=== PATIENT | female | born 1960 | race Caucasian/White ===

== ENCOUNTER 2018-02-15 12:21 | Emergency (ER) | payer MEDICAID ==
[~2018-02-15] VITALS: Ht 175.3 cm; Wt 49.4 kg
[2018-02-15 12:25] VITALS: BP 134/82
--- NOTE | 2018-02-15 12:56 | NUR ---
PATIENT AMBULATED TO ER BED 3
--- NOTE | 2018-02-15 13:10 | NUR ---
PATIENT PRESENTS TO ED WITH C/O ABDOMINAL PAIN AND CONSTIPATION X4 DAYS . PATIENT STATES PAIN OF 8/10 AT THIS TIME; VSS; PATIENT POSITIONED FOR COMFORT; HOB ELEVATED; BEDRAILS UP X2; BED DOWN. ER MD MADE AWARE OF PT STATUS.
--- NOTE | 2018-02-15 13:26 | NUR ---
Patient being evaluated by physician at bedside.
[2018-02-15] MEDS ORDERED: MAGNESIUM CITRATE 300 ML BTL PO ONE (13:30)
[2018-02-15 14:58] VITALS: BP 134/82
--- NOTE | 2018-02-15 14:58 | NUR ---
Patient discharged with v/s stable. Written and verbal after care instructions given and explained. Patient alert, oriented and verbalized understanding of instructions. Ambulatory with steady gait. All questions addressed prior to discharge. ID band removed. Patient advised to follow up with PMD. Rx of HYDROCORTISONE, DULCOLAX, MIRALAX given. Patient educated on indication of medication including possible reaction and side effects. Opportunity to ask questions provided and answered.
== END 2018-02-15 14:58 | disposition home or self-care (01) ==
LOC: MED 12:21
DX: K59.00 Constipation, unspecified (principal); K64.4 Residual hemorrhoidal skin tags; M81.0 Age-related osteoporosis without current pathological fracture; Z90.89 Acquired absence of other organs; Z90.710 Acquired absence of both cervix and uterus
CPT/HCPCS: 74018; 81025; 99283

== ENCOUNTER 2018-03-07 16:04 | Inpatient (IN) | payer MEDICAID ==
[~2018-03-07] VITALS: Ht 175.3 cm; Wt 49.4 kg
[2018-03-07 16:19] VITALS: BP 125/80
--- NOTE | 2018-03-07 16:26 | NUR ---
PT AMBULATES TO BED 12
--- NOTE | 2018-03-07 16:30 | NUR ---
57/F BIB SELF C/O CHRONIC CONSTIPATION, HEMORRHOIDS, ABDOMINAL PAIN FOR 2 YRS; LAST BM 4 DAYS AGO.HX; CONSTIPATION. DENIES N/V/D; SKIN IS PINK/WARM/DRY; AAOX4 WITH EVEN AND STEADY GAIT; LUNGS CLEAR BL.PATIENT STATES PAIN OF 8/10 AT THIS TIME. PATIENT POSITIONED FOR COMFORT; HOB ELEVATED; BEDRAILS UP X2; BED DOWN. ER MD MADE AWARE OF PT STATUS.
--- NOTE | 2018-03-07 17:44 | NUR ---
Patient being evaluated by DR BIRMINGHAM at bedside.
[2018-03-07 18:13] LABS: BASOPHILS % (AUTO) 0.9 % (0.0-2.0); EOSINOPHILS # (AUTO) 0.1 K/uL (0-0.4); EOSINOPHILS % (AUTO) 3.3 % (0.0-4.0); HEMATOCRIT 41.3 % (36-48); HEMOGLOBIN 13.6 g/dL (12.0-16.0); LYMPHOCYTES # (AUTO) 1.3 K/uL (2.5-16.5); LYMPHOCYTES % (AUTO) 33.9 % (20.5-51.1); MEAN CORPUSCULAR HEMOGLOBIN 30 pg (27-31); MEAN CORPUSCULAR HGB CONC 33 g/dL (33-37); MEAN CORPUSCULAR VOLUME 89.9 fL (80-94); MONOCYTES # (AUTO) 0.5 K/uL (0.8-1.0); MONOCYTES % (AUTO) 12.4 % (1.7-9.3); NEUTROPHILS # (AUTO) 1.9 K/uL (1.8-7.7); NEUTROPHILS % (AUTO) 49.5 % (42.2-75.2); PLATELET COUNT (AUTO) 237 K/uL (140-450); RED BLOOD CELL COUNT(AUTO) 4.59 MIL/uL (4.20-5.40); RED CELL DISTRIBUTION WIDTH 13.8 % (11.6-13.7); WHITE BLOOD COUNT (AUTO) 3.9 K/uL (4.8-10.8)
[2018-03-07 18:23] LABS: APPEARANCE,URINE SL CLOUDY (CLEAR); BILIRUBIN,URINE NEGATIVE (NEGATIVE); BLOOD, URINE NEGATIVE (NEGATIVE); COLOR,URINE YELLOW (YELLOW); LEUKOCYTE ESTERASE ,URINE NEGATIVE (NEGATIVE); NITRITE, URINE POSITIVE (NEGATIVE); PH,URINE 5.5 (5.0-9.0); UGLUCOSE NEGATIVE (NEGATIVE)
[2018-03-07 18:24] LABS: ANION GAP 8.7 (8-16); CARBON DIOXIDE 35.9 mmol/L (21-32); CREATININE 0.9 mg/dL (0.6-1.3); POTASSIUM 3.6 mmol/L (3.5-5.1)
[2018-03-07 18:30] LABS: ALBUMIN 3.8 g/dL (3.4-5.0); TOTAL BILIRUBIN 0.2 mg/dL (0.0-1.0)
[2018-03-07 18:45] LABS: RBC,URINE 0-5 (RARE) /HPF (0-5); WBC,URINE 0-5 (RARE) /HPF (0-5)
[2018-03-07 18:46] LABS: CALCIUM OXALATE CRYSTALS,UR 1 /HPF (None Seen)
--- NOTE | 2018-03-07 19:03 | NUR ---
PT TAKEN TO CT VIA W/C ACCOMPANIED BY MANAGER TRUCK.
--- NOTE | 2018-03-07 19:09 | NUR ---
Pt report given to WILLIAM SALAS . Transfer of care at this time.
--- NOTE | 2018-03-07 19:15 | NUR ---
PT BACK FROM CT. PT AOX4, RR EVEN AND UNLABORED. PT DENIES HAVING BM. PROVIDED PT WITH SANDWICH PER PT REQUEST, DR BIRMINGHAM AWARE.
[2018-03-07 20:00] VITALS: BP 130/80
--- NOTE | 2018-03-07 21:00 | NUR ---
Patient appears to be resting comfortably in bed. Vital Signs within normal limits. Respirations even and unlabored.
[2018-03-07] MEDS ORDERED: ACETAMINOPHEN 325 MG TAB PO PRN (22:25)
[2018-03-07] MEDS ORDERED: ONDANSETRON 4 MG/2 ML VIAL IVP PRN (22:25)
[2018-03-07] MEDS ORDERED: HYDROcodone/APAP 7.5/325 MG 1 TAB PO PRN (22:25)
[2018-03-07] MEDS: LEVOFLOXACIN 250 MG/D5 PREMIX 50 ML IV SCH (22:30)
[2018-03-07] MEDS ORDERED: MAGNESIUM CITRATE 300 ML BTL PO ONE (22:30)
[2018-03-07] MEDS ORDERED: SODIUM PHOSPHATE 118 ML ENEM RC ONE (22:30)
[2018-03-07] MEDS ORDERED: CALC-751 PO (23:00)
[2018-03-07] MEDS ORDERED: MAGN1.7538 PO (23:00)
--- NOTE | 2018-03-07 23:00 | NUR ---
Patient appears to be resting comfortably in bed. Vital Signs within normal limits. Respirations even and unlabored.
[2018-03-07 23:04] LABS: BARBITURATE, URINE NEG. ng/ml (NEG <=200); BENZODIAZEPINE, URINE NEG. ng/mL (NEG <=200); CANNABINOID, URINE NEG. ng/mL (NEG <=50); COCAINE, URINE NEG. ng/mL (NEG <=300); OPIATE, URINE NEG. ng/mL (NEG <=2000); PHENCYCLIDINE SCREEN,URINE NEG. ng/mL (NEG <=25)
[2018-03-07 23:14] LABS: CHOL/HDL RATIO 2.6 (1-4.5); FREE T4 (FREE THYROXINE) 0.86 ng/dL (0.76-1.46); THYROID STIMULATING HORMONE 1.12 uIU/mL (0.34-3.74)
[2018-03-07 23:17] LABS: PROTHROMBIN TIME 10.2 secs (10.8-13.4)
--- NOTE | 2018-03-07 23:20 | NUR ---
Admitted from ER TO MED SURGICAL UNIT, with chief complaint of CONSTIPATION FOR 5 DAYS NOW, 57 y/o ,Female, Cooperative, AWAKE, A/OX4. RESPIRATION EVEN AND UNLABORED. IV SALINE LOCK AT THE LEFT FOREARM G20, PATENT AND INTACT. AMBULATORY TO BR. INDEPENDENT, HEAD TO TOE ASSESSMENT DONE WITH CHARGE NURSE JORGE SKIN INTACT. PLAN OF CARE FOR THE SHIFT DISCUSSED. VERBALIZED UNDERSTANDING. DENIES PAIN 0/10.oriented to call light, bed, phone,television, bathroom, smoking policy,visiting hours, procedures, ID bracelet on. Belongings list checked.
--- NOTE | 2018-03-07 23:23 | NUR ---
Patient will be admitted to care of [facility]. Admited to TELE. Will go to room 106B. Belongings list completed. Report to WILLIAM SALAZAR AT BEDSIDE.
[2018-03-08] VITALS: BP 132/86
--- NOTE | 2018-03-08 | NUR ---
Patient's Plan of Care was discussed and reviewed with RESEARCH PROFESSOR OF BIOSTATISTICS: APOLLO GOFF
[2018-03-08] MEDS: LEVOFLOXACIN 250 MG/D5 PREMIX 50 ML IV SCH (00:56)
--- NOTE | 2018-03-08 00:58 | NUR ---
CITROMA GIVEN TO PATIENT, STARTED DRINKING IT. REFUSED TO HAVE FLEET ENEMA AT THIS TIME BECAUSE OF THE IVPB DAWOOD, STATED IT WOULD BE HARD FOR HER TO GO TO BR IF ANTIBIOTIC IS INFUSING.
--- NOTE | 2018-03-08 02:00 | NUR ---
BILATERAL LEG SEQUENTIALS NOT APPLIED, PATIENT AMBULATING TO THE BR.
--- NOTE | 2018-03-08 02:35 | NUR ---
FLEET ENEMA GIVEN. INSTRUCTED TO TRY TO RETAIN THE FLUID AND CALL NURSE WHEN NEEDING HELP.
--- NOTE | 2018-03-08 03:00 | NUR ---
ENCOURAGED TO FINISH THE CITROMA.
--- NOTE | 2018-03-08 05:30 | NUR ---
HAD MEDIUM LOOSE BM. BACK TO BED AFTER DEFECATING.
--- NOTE | 2018-03-08 07:15 | NUR ---
CONDITION REMAIN STABLE. ENDORSED TO WILLIAM ERAZO FOR CONTINUITY OF CARE.
--- NOTE | 2018-03-08 07:20 | NUR ---
RECEIVED REPORT FROM SCRAP YARD WORKER NURSE. PT IS RESTING IN BED AAOX4, AMBULATORY, PT HAS IV ON HER LEFT FA, PATENT, INTACT, FLUSHING WELL, NO S/S OF RESPIRATORY DISTRESS OR DISCOMFORT NOTED, SKIN IS INTACT, DISCUSSED PLAN OF CARE WITH PT, PT VERBALIZED UNDERSTANDING, CALL LIGHT WITHIN REACH, WILL CONTINUE TO MONITOR.
[2018-03-08 07:21] LABS: BASOPHILS % (AUTO) 0.9 % (0.0-2.0); EOSINOPHILS # (AUTO) 0.1 K/uL (0-0.4); EOSINOPHILS % (AUTO) 3.1 % (0.0-4.0); HEMOGLOBIN 14.2 g/dL (12.0-16.0); LYMPHOCYTES # (AUTO) 1.4 K/uL (2.5-16.5); LYMPHOCYTES % (AUTO) 34.4 % (20.5-51.1); MEAN CORPUSCULAR HEMOGLOBIN 30 pg (27-31); MEAN CORPUSCULAR HGB CONC 34 g/dL (33-37); MEAN CORPUSCULAR VOLUME 88.7 fL (80-94); MONOCYTES # (AUTO) 0.4 K/uL (0.8-1.0); NEUTROPHILS % (AUTO) 50.6 % (42.2-75.2); PLATELET COUNT (AUTO) 226 K/uL (140-450); RED BLOOD CELL COUNT(AUTO) 4.73 MIL/uL (4.20-5.40); RED CELL DISTRIBUTION WIDTH 13.6 % (11.6-13.7)
[2018-03-08 07:27] LABS: ANION GAP 11.7 (8-16); CARBON DIOXIDE 30.9 mmol/L (21-32); CREATININE 0.8 mg/dL (0.6-1.3); POTASSIUM 3.6 mmol/L (3.5-5.1)
[2018-03-08 08:00] VITALS: BP 111/72
--- NOTE | 2018-03-08 08:20 | NUR ---
DUE MEDICATIONS GIVEN. PT TOLERATED WELL, CALL LIGHT WITHIN REACH.
[2018-03-08] MEDS ORDERED: DOCUSATE SODIUM 100 MG GELCAP PO SCH (09:00)
[2018-03-08] MEDS ORDERED: LACTOBACILLUS RHAMNOSUS GG 1 EACH CAP PO SCH (09:00)
--- NOTE | 2018-03-08 11:00 | NUR ---
PATIENT IS RESTING IN BED, PATIENT'S FAMILY IS AT BEDSIDE. CALL LIGHT IS WITHIN REACH.
--- NOTE | 2018-03-08 12:40 | NUR ---
CALLED ALENA AT [facility]. HE SAID REVIEW JUST GO TO [facility] FAXED INITIAL REVIEW TO [facility] [phone] PHONE [phone] NORI Pacheco391
--- NOTE | 2018-03-08 12:45 | NUR ---
PT IN THE SHOWER AT THIS TIME.
--- NOTE | 2018-03-08 13:00 | NUR ---
PT RETURNED BACK TO HER ROOM AFTER SHOWER. PT STABLE AT THIS TIME.
[2018-03-08 13:30] LABS: MAGNESIUM 2.3 mg/dL (1.8-2.4); PHOSPHORUS 5.3 mg/dL (2.5-4.9)
[2018-03-08 14:03] LABS: MAGNESIUM 2.3 mg/dL (1.8-2.4); PHOSPHORUS 5.3 mg/dL (2.5-4.9)
--- NOTE | 2018-03-08 14:45 | NUR ---
DISCHARGE INSTRUCTIONS GIVEN, IV REMOVED, CATHETER TIP INTACT, ID WRIST BAND REMOVED. PT STABLE UPON DISCHARGE.
--- NOTE | 2018-03-08 14:58 | NUR ---
PATIENT HAS BEEN SCREENED AND CATEGORIZED HIGH NUTRITION RISK. PATIENT WILL BE SEEN WITHIN 1-2 DAYS OF ADMISSION. 03/08/18 - 03/09/[address]
[2018-03-09] MEDS ORDERED: LEVOFLOXACIN 250 MG/D5 PREMIX 50 ML IV SCH (09:00)
--- NOTE | 2018-03-11 15:33 | NUR ---
CM NOTE DISCHARGE SUMMARY FAXED TO [facility] [place] / FAX# [phone]
== END 2018-03-08 14:57 | disposition home or self-care (01) | DRG 254 ==
LOC: MED 16:04 → MTU 22:27
PROVIDERS: ADMIT Family Medicine Sports Medicine; ATTEND Family Medicine Sports Medicine
DX: K59.00 Constipation, unspecified (principal); N39.0 Urinary tract infection, site not specified; F15.10 Other stimulant abuse, uncomplicated; K80.20 Calculus of gallbladder without cholecystitis without obstruction; R63.6 Underweight; M81.0 Age-related osteoporosis without current pathological fracture; F17.210 Nicotine dependence, cigarettes, uncomplicated; M85.80 Other specified disorders of bone density and structure, unspecified site; D72.819 Decreased white blood cell count, unspecified; K76.9 Liver disease, unspecified; Z68.1 Body mass index [BMI] 19.9 or less, adult; Z80.8 Family history of malignant neoplasm of other organs or systems; Z90.710 Acquired absence of both cervix and uterus; Z82.49 Family history of ischemic heart disease and other diseases of the circulatory system
CPT/HCPCS: 36415; 71045; 80048; 80053; 80305; 81001; 82150; 83036; 83690; 83735; 83880; 84100; 84439; 84443; 84484; 85025; 85610; 85730; 87081; 87086; 93005; 99285; J1956; J7030; J7060; Q9967

== ENCOUNTER 2018-07-20 12:12 | Emergency (ER) | payer MEDICAID ==
[~2018-07-20] VITALS: Ht 175.3 cm; Wt 52.2 kg
[~2018-07-20 12:12] MED LIST: CALC-751 PO; MAGN1.7538 PO
[2018-07-20 12:21] VITALS: BP 130/90
--- NOTE | 2018-07-20 12:26 | NUR ---
PT. CAME INTO THE ED DUE TO R ARMPIT PAIN THAT RADIATES TO HER BACK SINCE THIS MORNING. PT STATES " I GET THIS PAIN WHEN I START GETTING BRONCHITIS". DENIES ANY FEVERS, RR EVEN AND UNLABORED. SYMMETRICAL CHEST RISE NOTED. LS: CLEAR AND DIMINISHED ON R SIDE. PT STATES " I TOOK AN ANTIBIOTIC THAT MY DOCTOR GAVE ME A COUPLE WEEKS AGO AND 2 ASPIRINS OF 250MG". PT HAS 9/10 SHARP PAIN THAT RADIATES FROM UNDER R ARMPIT TO R BACK SINCE THIS MORNING". DENIES N/V/D. ER NOTIFIED. SAFETY PRECAUTIONS IMPLEMENTED. WILL CONTINUE TO MONITOR.
[2018-07-20] MEDS ORDERED: AZITHROMYCIN 250 MG TAB PO ONE (12:55)
[2018-07-20] MEDS ORDERED: IPRATROPIUM 0.02% 0.5 MG/2.5 ML NEBU INH ONE (12:55)
[2018-07-20] MEDS ORDERED: ALBUTEROL 0.083% 2.5 MG/3 ML NEBU INH ONE (12:55)
--- NOTE | 2018-07-20 13:07 | NUR ---
RT AT BEDSIDE AT THIS TIME, RR EVEN AND UNLABORED. VSS. WILL CONTINUE TO MONITOR
--- NOTE | 2018-07-20 13:11 | NUR ---
ADMITTING DX: OTHER HX: BRONCHITIS AWAKE AND ALERT RESPONSIVE C/O SOB SITTING UP ON [place] EDUCATION PROVIDED TO PATIENT WITH ACLKNOWLEDGEMENT ON [facility] THERAP[facility] AND RESPIRATORY DRUGS [facility]ER[facility] GIVEN ORDERED ENCOURAGED PATIENT FOR INTERMITTENT DEEP BREATHING DURING THERAPY TOLERATED WELL WITHOUT INCIDENT
--- NOTE | 2018-07-20 13:30 | NUR ---
PT. IN BED RESTING COMFORTABLY, RR EVEN AND UNLABORED. BED IN LOWEST POSITION . WILL CONTINUE TO MONITOR.
--- NOTE | 2018-07-20 13:48 | NUR ---
PT. IS UP FOR D/C , BUT NO DISCHARGE PAPERWORK AVAILABLE AT THIS TIME.
--- NOTE | 2018-07-20 14:09 | NUR ---
PT CONTINUES TO WAIT FOR DC INSTRUCTIONS---NOT PRINTED BY MD OF YET--- PT STATED SHE WILL WAIT IN THE LOBBY FOR DC PAPERS---ACCOMPANIED BY SPOUSE.
[2018-07-20 14:24] VITALS: BP 127/87
== END 2018-07-20 14:11 | disposition home or self-care (01) ==
LOC: MED 12:12
DX: J20.9 Acute bronchitis, unspecified (principal); Z79.899 Other long term (current) drug therapy
CPT/HCPCS: 71045; 94640; 99283; J7613; J7644; Q0092

== ENCOUNTER 2018-10-01 07:41 | Emergency (ER) | payer MEDICAID ==
[~2018-10-01] VITALS: Ht 175.3 cm; Wt 80.7 kg
[2018-10-01 07:45] VITALS: BP 130/84
--- NOTE | 2018-10-01 07:45 | NUR ---
PT AMBULATES TO BED 8
--- NOTE | 2018-10-01 07:54 | NUR ---
reported to er md fonseca regarding patient's status and c/o. no new orders at this time. er md fonseca stated he will go examine patient.
--- NOTE | 2018-10-01 07:55 | NUR ---
Patient being evaluated by physician at bedside.
--- NOTE | 2018-10-01 07:56 | NUR ---
PATIENT PRESENTS TO ED WITH C/O RIGHT SIDE OF BODY ACHING, WORSE WHEN BREATHING IN, DENIES CHEST PAIN. AAOX4 WITH EVEN AND STEADY GAIT; LUNGS CLEAR BL; HR EVEN AND REGULAR; PT DENIES ANY FEVER, CP, SOB, OR COUGH AT THIS TIME; DENIES N/V/D; SKIN IS PINK/WARM/DRY; PATIENT STATES PAIN OF 7/10 AT THIS TIME; VSS; PATIENT POSITIONED FOR COMFORT; HOB ELEVATED; BEDRAILS UP X2; BED DOWN. ER MD MADE AWARE OF PT STATUS.
[2018-10-01] MEDS ORDERED: ALBUTEROL SULFATE/IPRATROPIU 3 ML SOL IH ONE (08:10)
[2018-10-01] MEDS ORDERED: LEVOFLOXACIN 500 MG TAB PO ONE (08:10)
[2018-10-01] MEDS ORDERED: DEXAMETHASONE 10 MG/ML VIAL IM ONE (08:10)
--- NOTE | 2018-10-01 08:11 | NUR ---
CALLED RT FOR TREATMENT
--- NOTE | 2018-10-01 08:15 | NUR ---
RT AT BEDSIDE
--- NOTE | 2018-10-01 09:31 | NUR ---
PT RETURNED FROM XRAY
[2018-10-01 10:00] VITALS: BP 130/84
--- NOTE | 2018-10-01 10:00 | NUR ---
Patient discharged with v/s stable. Written and verbal after care instructions given and explained. Patient alert, oriented and verbalized understanding of instructions. Ambulatory with steady gait. All questions addressed prior to discharge. ID band removed. Patient advised to follow up with PMD. Rx of AZITHROMYCIN, PROMETHAZINE DM, PREDNISONE given. Patient educated on indication of medication including possible reaction and side effects. Opportunity to ask questions provided and answered.
== END 2018-10-01 10:00 | disposition home or self-care (01) ==
LOC: MED 07:41
DX: J44.1 Chronic obstructive pulmonary disease with (acute) exacerbation (principal); F17.210 Nicotine dependence, cigarettes, uncomplicated; Z79.899 Other long term (current) drug therapy
CPT/HCPCS: 71046; 94640; 96372; 99284; J1100; J7620

== ENCOUNTER 2018-10-21 18:09 | Emergency (ER) | payer MEDICAID ==
[~2018-10-21] VITALS: Ht 175.3 cm; Wt 49.9 kg
[2018-10-21 18:20] VITALS: BP 152/92
[2018-10-21] MEDS ORDERED: ASPIRIN 325 MG TAB PO ONE (19:50)
[2018-10-21 20:21] LABS: BASOPHILS % (AUTO) 0.6 % (0.0-2.0); EOSINOPHILS # (AUTO) 0.1 K/uL (0-0.4); EOSINOPHILS % (AUTO) 1.3 % (0.0-4.0); HEMATOCRIT 43.1 % (36-48); HEMOGLOBIN 14.2 g/dL (12.0-16.0); LYMPHOCYTES # (AUTO) 1.4 K/uL (2.5-16.5); LYMPHOCYTES % (AUTO) 28.5 % (20.5-51.1); MEAN CORPUSCULAR HEMOGLOBIN 30 pg (27-31); MEAN CORPUSCULAR HGB CONC 33 g/dL (33-37); MONOCYTES # (AUTO) 0.4 K/uL (0.8-1.0); NEUTROPHILS # (AUTO) 2.9 K/uL (1.8-7.7); NEUTROPHILS % (AUTO) 60.6 % (42.2-75.2); PLATELET COUNT (AUTO) 236 K/uL (140-450); RED BLOOD CELL COUNT(AUTO) 4.79 MIL/uL (4.20-5.40); RED CELL DISTRIBUTION WIDTH 13.6 % (11.6-13.7); WHITE BLOOD COUNT (AUTO) 4.8 K/uL (4.8-10.8)
[2018-10-21 20:39] LABS: ANION GAP 10.8 (8-16); CREATININE 0.8 mg/dL (0.6-1.3); POTASSIUM 3.8 mmol/L (3.5-5.1)
[2018-10-21 20:51] LABS: CREATINE KINASE MB 1.8 ng/mL (0-3.6)
[2018-10-21 20:52] LABS: ALBUMIN 4.1 g/dL (3.4-5.0); TOTAL BILIRUBIN 0.5 mg/dL (0.0-1.0)
[2018-10-21] MEDS ORDERED: NACL 0.9% 1,000 ML IV ONE (21:10)
[2018-10-21 22:25] VITALS: BP 127/77
== END 2018-10-21 22:25 | disposition home or self-care (01) ==
LOC: MED 18:09
DX: R07.89 Other chest pain (principal); R03.0 Elevated blood-pressure reading, without diagnosis of hypertension; J44.9 Chronic obstructive pulmonary disease, unspecified; Z79.899 Other long term (current) drug therapy; Z87.891 Personal history of nicotine dependence
CPT/HCPCS: 36415; 71045; 80053; 82550; 82553; 83690; 84484; 85025; 93005; 96360; 99284; J7030; Q0092

== ENCOUNTER 2019-10-15 07:27 | Emergency (ER) | payer MEDICAID ==
[~2019-10-15] VITALS: Ht 176.5 cm; Wt 54.4 kg
[2019-10-15 07:31] VITALS: BP 141/76
[2019-10-15 08:26] LABS: BASOPHILS % (AUTO) 0.8 % (0.0-2.0); EOSINOPHILS # (AUTO) 0.2 K/uL (0-0.4); HEMATOCRIT 38.9 % (36-48); HEMOGLOBIN 12.9 g/dL (12.0-16.0); LYMPHOCYTES # (AUTO) 1.3 K/uL (2.5-16.5); LYMPHOCYTES % (AUTO) 32.5 % (20.5-51.1); MEAN CORPUSCULAR HEMOGLOBIN 30 pg (27-31); MEAN CORPUSCULAR HGB CONC 33 g/dL (33-37); MEAN CORPUSCULAR VOLUME 90.3 fL (80-94); MONOCYTES # (AUTO) 0.5 K/uL (0.8-1.0); MONOCYTES % (AUTO) 13.1 % (1.7-9.3); NEUTROPHILS % (AUTO) 49.6 % (42.2-75.2); PLATELET COUNT (AUTO) 270 K/uL (140-450); RED CELL DISTRIBUTION WIDTH 13.4 % (11.6-13.7)
[2019-10-15 08:39] LABS: ANION GAP 11.9 (8-16); CARBON DIOXIDE 28.4 mmol/L (21-32); CREATININE 0.8 mg/dL (0.6-1.3); POTASSIUM 4.3 mmol/L (3.5-5.1)
[2019-10-15] MEDS: guaiFENesin DM 200/20 MG-10 ML 10 ML UDC PO ONE (08:39)
[2019-10-15 10:56] VITALS: BP 135/72
== END 2019-10-15 10:57 | disposition home or self-care (01) ==
LOC: MED 07:27
DX: J20.8 Acute bronchitis due to other specified organisms (principal); B97.89 Other viral agents as the cause of diseases classified elsewhere; J44.9 Chronic obstructive pulmonary disease, unspecified; Z90.49 Acquired absence of other specified parts of digestive tract; Z79.899 Other long term (current) drug therapy
CPT/HCPCS: 36415; 71046; 80048; 85025; 99284

== ENCOUNTER 2022-12-20 14:32 | Emergency (ER) | payer MEDICAID ==
[~2022-12-20] VITALS: Ht 162.6 cm; Wt 52.2 kg
[~2022-12-20 14:32] MED LIST changes: -MAGN1.7538 PO; +MAGN296S PO
[2022-12-20 14:39] VITALS: BP 129/70
[2022-12-20] MEDS ORDERED: IBUP-2213 PO (15:52)
[2022-12-20] MEDS ORDERED: PROM118S5 PO (15:52)
--- NOTE | 2022-12-20 16:03 | NUR ---
MAGGIE AND FLU SWABS COLLECTED AND WALKED TO LAB
--- NOTE | 2022-12-20 16:04 | NUR ---
Patient discharged with v/s stable. Written and verbal after care instructions ABOUT URI given and explained. Patient alert, oriented and verbalized understanding of instructions. Ambulatory with steady gait. All questions addressed prior to discharge. ID band removed. Patient advised to follow up with PMD. Rx of PROMETHAZINE AND IBUPROFEN given. Patient educated on indication of medication including possible reaction and side effects. Opportunity to ask questions provided and answered.
== END 2022-12-20 16:03 | disposition home or self-care (01) ==
LOC: MED 14:32
DX: J06.9 Acute upper respiratory infection, unspecified (principal); Z20.822 Contact with and (suspected) exposure to COVID-19; B97.89 Other viral agents as the cause of diseases classified elsewhere; J44.9 Chronic obstructive pulmonary disease, unspecified; F17.210 Nicotine dependence, cigarettes, uncomplicated; Z79.899 Other long term (current) drug therapy; Z87.891 Personal history of nicotine dependence
CPT/HCPCS: 71045; 99284

== ENCOUNTER 2023-01-03 12:07 | Emergency (ER) | payer MEDICAID ==
[~2023-01-03] VITALS: Ht 175.3 cm; Wt 50.3 kg
[~2023-01-03 12:07] MED LIST changes: +IBUP-2213 PO; -MAGN296S PO; +MAGN296S68 PO; +PROM118S5 PO
[2023-01-03 12:22] VITALS: BP 117/73
[2023-01-03 15:23] LABS: APPEARANCE,URINE CLEAR (CLEAR); BILIRUBIN,URINE NEGATIVE (NEGATIVE); BLOOD, URINE NEGATIVE (NEGATIVE); COLOR,URINE YELLOW (YELLOW); LEUKOCYTE ESTERASE ,URINE NEGATIVE (NEGATIVE); NITRITE, URINE NEGATIVE (NEGATIVE); UGLUCOSE NEGATIVE (NEGATIVE)
--- NOTE | 2023-01-03 15:54 | NUR ---
62F BIB SELF TO ED WITH C/O BILATERAL FLANK PAIN X4DAYS 10/10 AND COUGH [id number]. PMH:OSTEOPOROSIS, PROLAPSED COLON, PSORIASIS ALLERGIES:DENIES
--- NOTE | 2023-01-03 15:54 | NUR ---
DR EVANGELISTA AT BEDSIDE.
[2023-01-03] MEDS ORDERED: PROM118S5 PO (16:01)
[2023-01-03] MEDS ORDERED: IBUP-1842 PO (16:01)
[2023-01-03] MEDS ORDERED: AZIT250T4 PO (16:01)
[2023-01-03] MEDS ORDERED: PRED20TA5 PO (16:01)
[2023-01-03] MEDS ORDERED: KETOROLAC 30 MG/ML VIAL IM ONE (16:05)
[2023-01-03 16:16] VITALS: BP 139/75
--- NOTE | 2023-01-03 16:16 | NUR ---
Patient discharged with v/s stable. Written and verbal after care instructions given and explained. Patient alert, oriented and verbalized understanding of instructions. Ambulatory with steady gait. All questions addressed prior to discharge. ID band removed. Patient advised to follow up with PMD. Rx of ibuprofen, prednisone, promethazine (sent) given. Patient educated on indication of medication including possible reaction and side effects. Opportunity to ask questions provided and answered.
--- NOTE | 2023-01-03 16:17 | NUR ---
The patient's care was reviewed and supervised by Ysabel Angulo, RN, RN.
== END 2023-01-03 16:16 | disposition home or self-care (01) ==
LOC: MED 12:07
DX: R10.9 Unspecified abdominal pain (principal); R05.9 Cough, unspecified; J44.9 Chronic obstructive pulmonary disease, unspecified; Z79.899 Other long term (current) drug therapy; Z98.890 Other specified postprocedural states
CPT/HCPCS: 71045; 81003; 96372; 99284; J1885

== ENCOUNTER 2024-01-18 09:57 | Emergency (ER) | payer MEDICAID ==
[~2024-01-18] VITALS: Ht 175.3 cm; Wt 52.2 kg
[~2024-01-18 09:57] MED LIST changes: +AZIT250T4 PO; +IBUP-1842 PO; +PRED20TA5 PO
[2024-01-18 10:08] VITALS: BP 139/77; PULSE 78; RESP 11; TEMP 98.3
[2024-01-18 10:15] VITALS: PULSE 80
[2024-01-18 10:32] VITALS: O2SAT 98
[2024-01-18 10:39] LABS: BASOPHILS % (AUTO) 1.1 % (0.0-2.0); EOSINOPHILS # (AUTO) 0.1 K/uL (0-0.4); EOSINOPHILS % (AUTO) 2.2 % (0.0-4.0); HEMATOCRIT 40.7 % (36-48); HEMOGLOBIN 13.6 g/dL (12.0-16.0); LYMPHOCYTES # (AUTO) 1.1 K/uL (2.5-16.5); LYMPHOCYTES % (AUTO) 36.2 % (20.5-51.1); MEAN CORPUSCULAR HEMOGLOBIN 30 pg (27-31); MEAN CORPUSCULAR HGB CONC 33 g/dL (33-37); MEAN CORPUSCULAR VOLUME 88.7 fL (80-94); MONOCYTES # (AUTO) 0.4 K/uL (0.8-1.0); MONOCYTES % (AUTO) 13.6 % (1.7-9.3); NEUTROPHILS # (AUTO) 1.4 K/uL (1.8-7.7); NEUTROPHILS % (AUTO) 46.9 % (42.2-75.2); PLATELET COUNT (AUTO) 231 K/uL (140-450); RED BLOOD CELL COUNT(AUTO) 4.59 MIL/uL (4.20-5.40); RED CELL DISTRIBUTION WIDTH 13.1 % (11.6-13.7); WHITE BLOOD COUNT (AUTO) 2.9 K/uL (4.8-10.8)
[2024-01-18 10:45] LABS: ANION GAP 8.3 (8-16); CALCIUM 8.5 mg/dL (8.5-10.1); CARBON DIOXIDE 31.4 mmol/L (21-32); CREATININE 0.7 mg/dL (0.6-1.3); POTASSIUM 3.7 mmol/L (3.5-5.1)
== END 2024-01-18 12:20 | disposition left against medical advice (07) ==
LOC: MED 09:57
DX: R07.9 Chest pain, unspecified (principal); R06.02 Shortness of breath; Z53.21 Procedure and treatment not carried out due to patient leaving prior to being seen by health care provider
CPT/HCPCS: 36415; 71045; 80048; 83880; 84484; 85025; 93005; 99281